=== PATIENT | male | born 1950 | race Caucasian/White ===

== ENCOUNTER → 2016-11-23 | Outpatient (CLI) | payer OTHER | END | disposition home or self-care (01) | DX: R13.10 Dysphagia, unspecified (principal); G35 Multiple sclerosis; T17.890D Other foreign object in other parts of respiratory tract causing asphyxiation, subsequent encounter | CPT/HCPCS: 92611 GN; G8996 GN; G8997 GN; G8998 GN ==

== ENCOUNTER 2017-04-18 09:49 | Emergency (ER) | payer OTHER ==
[~2017-04-18] VITALS: Ht 188 cm; Wt 86.3 kg
[2017-04-18 10:24] LABS: EOSINOPHIL (%) 1.6 % (0-5); EOSINOPHIL COUNT 0.1 K/uL (0-0.3); HEMATOCRIT 46.4 % (38.0-50.0); IMMATURE GRANULOCYTE (%) 0.5 % (0.0-0.7); LYMPHOCYTE COUNT 1.5 K/uL (1.0-2.8); MCH 31.3 PG (29.0-34.0); MCHC 35.1 G/DL (30.0-36.0); MCV 89.1 FL (86-99); MEAN PLAT.VOLUME 10.9 uM^3 (9.0-12.4); MONOCYTE (%) 6.6 % (3-12); MONOCYTE COUNT 0.5 K/uL (0-0.8); NEUTROPHIL (%) 73.2 % (45-76); PLATELET COUNT 218 K/uL (156-360); RBC DIS.WIDTH-SD 35.4 % (39-53); RED BLOOD COUNT 5.21 M/uL (4.00-5.50); WHITE BLOOD COUNT 8.2 K/uL (4.1-10.2)
[2017-04-18 10:33] LABS: CHLORIDE 107 mEq/L (99-109); POTASSIUM 4.1 mEq/L (3.7-5.4); SODIUM 139 mEq/L (136-147)
[2017-04-18 10:35] LABS: GLUCOSE 104 mg/dL (70-99)
[2017-04-18 10:36] LABS: ANION GAP 11 MEQ/L (2-14)
[2017-04-18 10:37] LABS: TOTAL BILIRUBIN 0.6 mg/dL (0.0-1.0)
[2017-04-18 10:39] LABS: ALKALINE PHOSPHATASE 70 IU/L (3-129); GFR ESTIMATE (CALCULATED) > 59 mL/min/
[2017-04-18 10:40] LABS: UREA NITROGEN (BUN) 13 mg/dL (9-23)
[2017-04-18 12:58] LABS: ADD MIUA? YES; BILIRUBIN NEGATIVE; BLOOD SMALL; COLOR YELLOW ((YELLOW)); GLUCOSE (STRIP) NEGATIVE; KETONES NEGATIVE; LEUKOCYTES TRACE; NITRITE NEGATIVE; PROTEIN (STRIP) 30; UROBILINOGEN 0.2 MG/DL (0.2-1.0)
[2017-04-18 13:03] LABS: BACTERIA NONE SEEN /HPF; EPITHELIAL CELLS NONE SEEN /HPF; MUCUS TRACE /LPF; RED BLOOD CELLS 20-30 /HPF (0-5); WHITE BLOOD CELLS 20-30 /HPF (0-5)
[2017-04-18 13:36] VITALS: BP 128/79
== END 2017-04-18 13:31 | disposition home or self-care (01) ==
LOC: EME 09:49
PROVIDERS: Nurse Practitioner Family
DX: S10.93XA Contusion of unspecified part of neck, initial encounter (principal); W19.XXXA Unspecified fall, initial encounter; W22.8XXA Striking against or struck by other objects, initial encounter; R42 Dizziness and giddiness; E78.5 Hyperlipidemia, unspecified
CPT/HCPCS: 70491; 80053; 81003; 85025; 93005; 99281; 99284; J7030